=== PATIENT | male | born 1975 ===

== ENCOUNTER 2018-10-09 15:44 | Emergency (ER) | payer SELFPAY ==
[2018-10-09 15:49] VITALS: TEMP 97.3; O2SAT 100
--- NOTE | 2018-10-09 16:36 | ED PDOC ---
HPI: Psych/Substance Abuse Time Seen by Provider: 10/09/18 16:14 Chief Complaint (Nursing): Alcohol Ingestion Chief Complaint (Provider): Alcohol Ingestion History Per: Patient History/Exam Limitations: intoxication Onset/Duration Of Symptoms: Hrs Current Symptoms Are (Timing): Still Present Additional Complaint(s): 43 y/o male with hx of ETOH abuse who was BIBA to ED for public intoxication. Patient admits to drinking today, stating that he drinks Rachana every day without giving the quantity. Patient denies any physical complaints or SI/HI. PCP: None Provided Past Medical History Reviewed: Historical Data, Nursing Documentation, Vital Signs Vital Signs: Last Vital Signs Temp 97.3 F L 10/09/18 15:46 Pulse 81 10/09/18 15:46 Resp 18 10/09/18 15:46 BP Pulse Ox 100 10/09/18 15:46 - Medical History PMH: No Chronic Diseases - Surgical History Surgical History: No Surg Hx - Family History Family History: States: Unknown Family Hx - Social History Alcohol: > 2 Drinks/Day - Home Medications Home Medications: Ambulatory Orders Medication Instructions Recorded No Known Home Med 10/09/18 - Allergies Allergies/Adverse Reactions: Allergies Allergy/AdvReac Type Severity Reaction Status Date / Time No Known Allergies Allergy Verified 10/09/18 15:46 Review of Systems ROS Statement: Except As Marked, All Systems Reviewed And Found Negative Constitutional: Positive for: Other (intoxicated) Physical Exam - Reviewed Nursing Documentation Reviewed: Yes Vital Signs Reviewed: Yes - Physical Exam Appears: Positive for: No Acute Distress Eye Exam: Positive for: Conjunctival injection (bilaterally) Cardiovascular/Chest: Positive for: Regular Rate, Rhythm Respiratory: Positive for: Normal Breath Sounds Neurologic/Psych: Positive for: Other (Slurred Speech) - ECG O2 Sat by Pulse Oximetry: 100 (RA) Pulse Ox Interpretation: Normal Medical Decision Making Medical Decision Making: Time: 1615 Patient was agitated and aggressive towards provider and security staff at first, but became cooperative without any intervention. Placed on one to one for safety. Plan: Alcohol Serum: 319 @ 16:30 Accucheck: 111 23:00: pt re-evaluated, ambulating with a steady gait and speaking coherently. Feels well. Stable for d/c home. Scribe Attestation: Documented by Mk Cramer, acting as a scribe for Shari INTERIANO. Provider Scribe Attestation: All medical record entries made by the Scribe were at my direction and personally dictated by me. I have reviewed the chart and agree that the record accurately reflects my personal performance of the history, physical exam, medical decision making, and the department course for this patient. I have also personally directed, reviewed, and agree with the discharge instructions and disposition. Disposition - Clinical Impression Clinical Impression: Alcohol abuse with intoxication - Patient ED Disposition Is Patient to be Admitted: No - Disposition Referrals: Alcoholics Anonymous [Outside] [facility] [Outside] Disposition: Routine/Home Disposition Time: 23:23 Condition: STABLE Instructions: Alcohol Abuse and Alcoholism (DC) Print Language: MICRONESIAN
[2018-10-09 20:23] VITALS: BP 129/67; PULSE 67; RESP 22
== END 2018-10-09 23:26 | disposition home or self-care (01) ==
LOC: H.ER 15:44
DX: F10.129 Alcohol abuse with intoxication, unspecified (principal)
CPT/HCPCS: 82948; 99284; G0480